=== PATIENT | female | born 2000 | race Hispanic/Latino ===

== ENCOUNTER 2024-08-18 20:41 | Emergency (ER) | payer OTHER ==
[~2024-08-18] VITALS: Ht 170.2 cm; Wt 126.1 kg
[2024-08-18 21:39] LABS: ALBUMIN 3.9 g/dL (3.5-5.0); ALBUMIN/GLOBULIN RATIO 1.2 (0.8-2.0); ANION GAP 17.3 mmol/L (8-16); BILIRUBIN,TOTAL 0.4 mg/dL (0.2-1.2); CALCIUM 9.4 mg/dL (8.4-10.2); CREATININE, SERUM 0.67 mg/dL (0.57-1.11); TOTAL PROTEIN 7.1 g/dL (6.5-8.1)
[2024-08-18 21:45] LABS: TROPONIN I 0.061 ng/mL (0-0.300)
[2024-08-18] MEDS: FAMOTIDINE 20 MG/2 ML VIAL IV STA (21:50)
[2024-08-18] MEDS: ONDANSETRON HCL INJ 2MG/ML 2ML 2 MG/ML VIAL IV STA (21:50)
[2024-08-18 21:58] LABS: POTASSIUM 3.3 mmol/L (3.5-5.1)
[2024-08-18 22:13] LABS: BASOPHILS % 0.4 % (0.0-1.0); EOSINOPHILS # (AUTO) 0.3 (0.0-0.4); EOSINOPHILS % 3.1 % (0.0-6.0); HEMATOCRIT 40.1 % (34.2-44.1); HEMOGLOBIN 12.6 g/dL (12.0-16.0); LYMPHOCYTES # (AUTO) 3.5 (1.0-3.2); LYMPHOCYTES % 42.1 % (18.0-39.1); MEAN CORPUSCULAR HEMOGLOBIN 27.8 pg (28-32); MEAN CORPUSCULAR HGB CONC 31.4 g/dL (31-35); MEAN CORPUSCULAR VOLUME 88.3 fL (81-99); MONOCYTES # (AUTO) 0.5 (0.2-0.8); MONOCYTES % 5.4 % (4.4-11.3); NEUTROPHILS # (AUTO) 4.1 (2.1-6.9); NEUTROPHILS % 48.8 % (38.7-80.0); PLATELET COUNT 214 x10e3/uL (140-360); RED BLOOD COUNT 4.54 x10e6/uL (3.6-5.1); RED CELL DISTRIBUTION WIDTH 13.7 % (11.7-14.4); WHITE BLOOD COUNT 8.33 x10e3/uL (4.8-10.8)
[2024-08-18] MEDS ORDERED: DONNATAL/LIDOCAINE/MAALOX 30 ML SUSP PO STA (22:16)
[2024-08-18] MEDS ORDERED: IOPAMIDOL 370 MG/ML 100 ML INFUS..BTL INJ ONE (22:19)
[2024-08-18] MEDS: BELLADONNA ALK/PHENOBARBITAL 5 ML UDC PO STA (22:53)
[2024-08-18] MEDS: Morphine 4mg INJECTION 4 MG/ML INJ IV STA (22:53)
[2024-08-18] MEDS: LIDOCAINE VISC 2% SOLN 15 ML UDC PO STA (22:53)
[2024-08-18] MEDS: MAGNESIUM/ALUMINUM/SIMETHICONE 30 ML UDC PO STA (22:53)
[2024-08-19] MEDS ORDERED: PROTONIX20 MG PO (00:16)
[2024-08-19] MEDS ORDERED: DICYCLOMINE HCL10 MG PO (00:16)
[2024-08-19] MEDS ORDERED: ONDANSETRON ODT4 MG PO (00:16)
[2024-08-19 00:20] VITALS: PULSE 81; RESP 17; TEMP 98.6; O2SAT 98
== END 2024-08-19 00:27 | disposition home or self-care (01) ==
LOC: ER 20:45
DX: R10.13 Epigastric pain (principal); R07.89 Other chest pain; R11.2 Nausea with vomiting, unspecified; R73.03 Prediabetes; F41.9 Anxiety disorder, unspecified; F32.A Depression, unspecified; R94.31 Abnormal electrocardiogram [ECG] [EKG]
CPT/HCPCS: 36415; 71045; 74177; 80053; 81025; 82550; 83690; 83880; 84484; 85025; 93005; 99284; J2270; J2405; Q9967

== ENCOUNTER 2024-08-19 23:28 | Inpatient (IN) | payer OTHER ==
[~2024-08-19] VITALS: Ht 170.2 cm; Wt 126.1 kg
[~2024-08-19 23:28] MED LIST: DICYCLOMINE HCL10 MG PO; ONDANSETRON ODT4 MG PO; PROTONIX20 MG PO
[2024-08-19 23:43] VITALS: TEMP 99.1
[2024-08-19] MEDS: MAGNESIUM/ALUMINUM/SIMETHICONE 30 ML UDC PO STA (23:58)
[2024-08-19] MEDS: LIDOCAINE VISC 2% SOLN 15 ML UDC PO STA (23:58)
[2024-08-19] MEDS: BELLADONNA ALK/PHENOBARBITAL 5 ML UDC PO ONE (23:59)
[2024-08-20] VITALS (9 sets, daily range): BP systolic 108–131; BP diastolic 59–89; PULSE 69–91; RESP 17–20; TEMP 97.7–98.3; O2SAT 96–100
[2024-08-20 00:08] LABS: BASOPHILS % 0.6 % (0.0-1.0); EOSINOPHILS # (AUTO) 0.3 (0.0-0.4); HEMATOCRIT 39.3 % (34.2-44.1); HEMOGLOBIN 13.1 g/dL (12.0-16.0); LYMPHOCYTES # (AUTO) 2.2 (1.0-3.2); LYMPHOCYTES % 34.9 % (18.0-39.1); MEAN CORPUSCULAR HEMOGLOBIN 27.8 pg (28-32); MEAN CORPUSCULAR HGB CONC 33.3 g/dL (31-35); MEAN CORPUSCULAR VOLUME 83.4 fL (81-99); MONOCYTES # (AUTO) 0.4 (0.2-0.8); MONOCYTES % 6.4 % (4.4-11.3); NEUTROPHILS # (AUTO) 3.4 (2.1-6.9); NEUTROPHILS % 53.9 % (38.7-80.0); PLATELET COUNT 251 x10e3/uL (140-360); RED BLOOD COUNT 4.71 x10e6/uL (3.6-5.1); RED CELL DISTRIBUTION WIDTH 13.9 % (11.7-14.4); WHITE BLOOD COUNT 6.22 x10e3/uL (4.8-10.8)
[2024-08-20 00:37] LABS: ALBUMIN 4.1 g/dL (3.5-5.0); ALBUMIN/GLOBULIN RATIO 1.4 (0.8-2.0); CALCIUM 9.6 mg/dL (8.4-10.2); CREATININE, SERUM 0.68 mg/dL (0.57-1.11); TOTAL PROTEIN 7.1 g/dL (6.5-8.1)
[2024-08-20 01:33] LABS: CLARITY,URINE CLEAR (CLEAR); COLOR,URINE AMBER (YELLOW); LEUKOCYTE ESTERASE ,URINE NEGATIVE (NEGATIVE); NITRITE,URINE NEGATIVE (NEGATIVE); PH,URINE 6.5 (5 - 7); PROTEIN,URINE DIPSTICK NEGATIVE (NEGATIVE)
[2024-08-20 01:34] LABS: BILIRUBIN,URINE MODERATE (NEGATIVE); GLUCOSE, URINE NEGATIVE (NEGATIVE); KETONES,URINE 2+ (NEGATIVE); URINE UROBILINOGEN 1 mg/dL (0.2 - 1)
[2024-08-20 01:35] LABS: BACTERIA,URINE MANY /HPF; EPITHELIAL CELLS,URINE MODERATE /LPF; RBC,URINE >50 /HPF (0-5)
[2024-08-20 01:43] LABS: PREGNANCY TEST, URINE NEGATIVE (NEGATIVE)
[2024-08-20] MEDS: SODIUM CHLORIDE 0.9% 1000ML 1,000 ML IV SCH (02:40)
[2024-08-20] MEDS: ONDANSETRON HCL INJ 2MG/ML 2ML 2 MG/ML VIAL IV PRN (02:41)
[2024-08-20] MEDS: Morphine 4mg INJECTION 4 MG/ML INJ IV PRN (02:41)
[2024-08-20] MEDS ORDERED: FAMOTIDINE 20 MG/2 ML VIAL IV ONE (14:03)
[2024-08-20] MEDS ORDERED: METOCLOPRAMIDE HCL 10 MG/2ML VIAL ONE (14:03)
[2024-08-20] MEDS ORDERED: ROCURONIUM BROMIDE 1 ML IV ONE (14:03)
[2024-08-20] MEDS ORDERED: GLYCOPYRROLATE INJ 0.2 MG/ML VIAL ONE (14:03)
[2024-08-20] MEDS ORDERED: ONDANSETRON HCL INJ 2MG/ML 2ML 2 MG/ML VIAL ONE (14:03)
[2024-08-20] MEDS ORDERED: SEVOFLURANE INHAL SOLN 250 ML PEN BTL ONE (14:04)
[2024-08-20] MEDS ORDERED: HYDROMORPHONE 2MG/ML ONE (14:09)
[2024-08-20] MEDS ORDERED: SUGAMMADEX SODIUM 200 MG/2 ML VIAL IV ONE (14:29)
[2024-08-20] MEDS: FENTANYL CITRATE/PF 100MCG/2 ML INJ ONE (15:25)
[2024-08-21] VITALS: BP 118/73; PULSE 93; RESP 18; TEMP 98.2; O2SAT 100
[2024-08-21 04:00] VITALS: BP 120/77; PULSE 84; RESP 20; TEMP 98.4; O2SAT 100
[2024-08-21 09:00] VITALS: BP 120/77; PULSE 84; RESP 20; TEMP 98.4; O2SAT 100
[2024-08-21 09:03] VITALS: BP 119/69; PULSE 80; RESP 20; TEMP 98.6; O2SAT 98
[2024-08-21 09:09] LABS: BASOPHILS % 0.4 % (0.0-1.0); EOSINOPHILS % 0.2 % (0.0-6.0); HEMATOCRIT 37.2 % (34.2-44.1); HEMOGLOBIN 12.2 g/dL (12.0-16.0); LYMPHOCYTES # (AUTO) 1.2 (1.0-3.2); LYMPHOCYTES % 12.1 % (18.0-39.1); MEAN CORPUSCULAR HEMOGLOBIN 27.9 pg (28-32); MEAN CORPUSCULAR HGB CONC 32.8 g/dL (31-35); MEAN CORPUSCULAR VOLUME 85.1 fL (81-99); MONOCYTES # (AUTO) 0.6 (0.2-0.8); MONOCYTES % 5.8 % (4.4-11.3); NEUTROPHILS # (AUTO) 8.3 (2.1-6.9); NEUTROPHILS % 80.9 % (38.7-80.0); PLATELET COUNT 233 x10e3/uL (140-360); RED BLOOD COUNT 4.37 x10e6/uL (3.6-5.1); RED CELL DISTRIBUTION WIDTH 13.9 % (11.7-14.4); WHITE BLOOD COUNT 10.27 x10e3/uL (4.8-10.8)
[2024-08-21 09:52] LABS: ALBUMIN 3.6 g/dL (3.5-5.0); ALBUMIN/GLOBULIN RATIO 1.3 (0.8-2.0); ANION GAP 14.3 mmol/L (8-16); BILIRUBIN,TOTAL 1.2 mg/dL (0.2-1.2); CALCIUM 8.8 mg/dL (8.4-10.2); CREATININE, SERUM 0.61 mg/dL (0.57-1.11); POTASSIUM 4.3 mmol/L (3.5-5.1); TOTAL PROTEIN 6.3 g/dL (6.5-8.1)
[2024-08-21] MEDS ORDERED: ULTRAM 50MG50 MG PO (11:44)
[2024-08-21 12:12] VITALS: BP 121/71; PULSE 69; RESP 20; TEMP 97.6; O2SAT 100
[2024-08-21] MEDS: TRAMADOL HCL 50 MG TAB PO PRN (13:27)
== END 2024-08-21 14:55 | disposition home or self-care (01) | DRG 418 ==
LOC: ER 23:32 → ERHOLD 08-20 01:51 → MED/SURG3 08-20 02:15
PROVIDERS: ADMIT Internal Medicine; ATTEND Internal Medicine
PROC: 0FT44ZZ Resection of Gallbladder, Percutaneous Endoscopic Approach (ICD-10-PCS; principal; 2024-08-20 13:44)
DX: K80.00 Calculus of gallbladder with acute cholecystitis without obstruction (principal); Z68.41 Body mass index [BMI] 40.0-44.9, adult; E66.9 Obesity, unspecified; K76.0 Fatty (change of) liver, not elsewhere classified; R73.03 Prediabetes; R74.8 Abnormal levels of other serum enzymes; Z79.899 Other long term (current) drug therapy
CPT/HCPCS: 36415; 74181; 76705; 80053; 81001; 81025; 83690; 85025; 88304; 93005; 99252; 99284; J2270; J2405; J2543; J2765; J7030

== ENCOUNTER 2024-08-26 20:22 | Inpatient (IN) | payer OTHER ==
[~2024-08-26] VITALS: Ht 170.2 cm; Wt 126.1 kg
[~2024-08-26 20:22] MED LIST changes: +ULTRAM 50MG50 MG PO
[2024-08-26] MEDS: Morphine 4mg INJECTION 4 MG/ML INJ IV STA (20:36)
[2024-08-26] MEDS: ONDANSETRON HCL INJ 2MG/ML 2ML 2 MG/ML VIAL IV STA (20:36)
[2024-08-26] MEDS: SODIUM CHLORIDE 0.9% 1000ML 1,000 ML IV STA (20:36)
[2024-08-26 20:50] LABS: BASOPHILS # (AUTO) 0.1 (0.0-0.1); BASOPHILS % 0.4 % (0.0-1.0); EOSINOPHILS # (AUTO) 0.3 (0.0-0.4); EOSINOPHILS % 2.4 % (0.0-6.0); HEMATOCRIT 40.5 % (34.2-44.1); HEMOGLOBIN 13.5 g/dL (12.0-16.0); LYMPHOCYTES # (AUTO) 3.1 (1.0-3.2); LYMPHOCYTES % 24.8 % (18.0-39.1); MEAN CORPUSCULAR HEMOGLOBIN 28.2 pg (28-32); MEAN CORPUSCULAR HGB CONC 33.3 g/dL (31-35); MEAN CORPUSCULAR VOLUME 84.6 fL (81-99); MONOCYTES # (AUTO) 0.6 (0.2-0.8); MONOCYTES % 4.5 % (4.4-11.3); NEUTROPHILS # (AUTO) 8.3 (2.1-6.9); NEUTROPHILS % 67.5 % (38.7-80.0); PLATELET COUNT 313 x10e3/uL (140-360); RED BLOOD COUNT 4.79 x10e6/uL (3.6-5.1); WHITE BLOOD COUNT 12.32 x10e3/uL (4.8-10.8)
[2024-08-26 21:13] LABS: ALBUMIN 3.8 g/dL (3.5-5.0); ANION GAP 16.9 mmol/L (8-16); CALCIUM 10.2 mg/dL (8.4-10.2); CREATININE, SERUM 0.65 mg/dL (0.57-1.11); POTASSIUM 3.9 mmol/L (3.5-5.1); TOTAL PROTEIN 7.7 g/dL (6.5-8.1)
[2024-08-26] MEDS ORDERED: BELLADONNA ALK/PHENOBARBITAL 5 ML UDC ONE (21:14)
[2024-08-26] MEDS ORDERED: MAGNESIUM/ALUMINUM/SIMETHICONE 30 ML UDC ONE (21:14)
[2024-08-26] MEDS ORDERED: LIDOCAINE VISC 2% SOLN 15 ML UDC ONE (21:14)
[2024-08-26] MEDS: DONNATAL/LIDOCAINE/MAALOX 30 ML SUSP PO STA (21:18)
[2024-08-26] MEDS ORDERED: PIPERACILLIN/TAZOBACTAM 3.375 GM VIAL ONE (21:36)
[2024-08-26] MEDS ORDERED: IOPAMIDOL 370 MG/ML 100 ML INFUS..BTL INJ ONE (21:39)
[2024-08-26] MEDS ORDERED: ONDANSETRON HCL INJ 2MG/ML 2ML 2 MG/ML VIAL IV PRN (22:30)
[2024-08-26] MEDS: HYDROMORPHONE 1MG/1ML INJ IV PRN (23:54)
[2024-08-27] MEDS: SODIUM CHLORIDE 0.9% 1000ML 1,000 ML IV SCH (02:13)
[2024-08-27 03:45] LABS: CLARITY,URINE CLEAR (CLEAR); COLOR,URINE YELLOW (YELLOW); GLUCOSE, URINE NEGATIVE (NEGATIVE); LEUKOCYTE ESTERASE ,URINE NEGATIVE (NEGATIVE); NITRITE,URINE NEGATIVE (NEGATIVE); PH,URINE 6 (5 - 7); PROTEIN,URINE DIPSTICK NEGATIVE (NEGATIVE)
[2024-08-27 03:46] LABS: BILIRUBIN,URINE NEGATIVE (NEGATIVE); KETONES,URINE NEGATIVE (NEGATIVE); URINE UROBILINOGEN 1 mg/dL (0.2 - 1)
[2024-08-27 03:58] LABS: BACTERIA,URINE FEW /HPF; EPITHELIAL CELLS,URINE MODERATE /LPF; WBC,URINE (MAN) 0-5 /HPF (0-5)
[2024-08-27 04:00] VITALS: TEMP 98.1
[2024-08-27 05:34] LABS: BASOPHILS % 0.2 % (0.0-1.0); EOSINOPHILS % 0.4 % (0.0-6.0); HEMATOCRIT 35.9 % (34.2-44.1); HEMOGLOBIN 11.8 g/dL (12.0-16.0); LYMPHOCYTES # (AUTO) 1.1 (1.0-3.2); LYMPHOCYTES % 11.3 % (18.0-39.1); MEAN CORPUSCULAR HGB CONC 32.9 g/dL (31-35); MEAN CORPUSCULAR VOLUME 85.1 fL (81-99); MONOCYTES # (AUTO) 0.5 (0.2-0.8); MONOCYTES % 4.7 % (4.4-11.3); NEUTROPHILS # (AUTO) 8.2 (2.1-6.9); PLATELET COUNT 241 x10e3/uL (140-360); RED BLOOD COUNT 4.22 x10e6/uL (3.6-5.1); RED CELL DISTRIBUTION WIDTH 14.1 % (11.7-14.4); WHITE BLOOD COUNT 9.87 x10e3/uL (4.8-10.8)
[2024-08-27 06:00] LABS: ALBUMIN 3.2 g/dL (3.5-5.0); ALBUMIN/GLOBULIN RATIO 0.9 (0.8-2.0); ANION GAP 13.8 mmol/L (8-16); BILIRUBIN,TOTAL 0.7 mg/dL (0.2-1.2); CALCIUM 8.9 mg/dL (8.4-10.2); CREATININE, SERUM 0.61 mg/dL (0.57-1.11); POTASSIUM 4.8 mmol/L (3.5-5.1); TOTAL PROTEIN 6.6 g/dL (6.5-8.1)
[2024-08-27 07:00] VITALS: PULSE 65; RESP 13
[2024-08-27] MEDS ORDERED: TIZANIDINE HCL4 M1 PO (10:25)
[2024-08-27 11:12] VITALS: BP 128/76; PULSE 69; RESP 18; TEMP 98.2; O2SAT 100
[2024-08-27] MEDS ORDERED: LIDOCAINE HCL 2% LOCAL INJ 5 ML SDV VIAL INJ ONE (12:33)
[2024-08-27] MEDS ORDERED: PROPOFOL IV EMULSION 10 MG/ML 20 ML VIAL ONE (12:33)
[2024-08-27] MEDS: METOCLOPRAMIDE HCL 10 MG/2ML VIAL IV SCH (12:44)
[2024-08-27] MEDS ORDERED: FENTANYL CITRATE/PF 100MCG/2 ML INJ ONE (12:46)
[2024-08-27] MEDS ORDERED: ONDANSETRON HCL INJ 2MG/ML 2ML 2 MG/ML VIAL ONE (13:35)
[2024-08-27] MEDS ORDERED: KETOROLAC TROMETHAMINE 30 MG/ML VIAL ONE (13:35)
[2024-08-27] MEDS ORDERED: MIDAZOLAM HCL 2 MG/2 ML VIAL ONE (13:44)
[2024-08-27 16:20] VITALS: BP 153/98; PULSE 88; RESP 17; TEMP 98.1; O2SAT 100
[2024-08-27 20:00] VITALS: BP 130/90; PULSE 91; RESP 19; TEMP 98.1; O2SAT 100
[2024-08-27] MEDS: CEFTRIAXONE 1 GM VIAL ONE (20:14)
[2024-08-27] MEDS: FENTANYL CITRATE/PF 100MCG/2 ML INJ ONE (20:14)
[2024-08-27] MEDS ORDERED: MAGNESIUM/ALUMINUM/SIMETHICONE 30 ML UDC ONE (21:54)
[2024-08-27] MEDS ORDERED: LIDOCAINE VISC 2% SOLN 15 ML UDC ONE (21:54)
[2024-08-27] MEDS ORDERED: BELLADONNA ALK/PHENOBARBITAL 5 ML UDC ONE (21:54)
[2024-08-27] MEDS: DONNATAL/LIDOCAINE/MAALOX 30 ML SUSP PO PRN (22:33)
[2024-08-28] VITALS: BP 140/87; PULSE 90; RESP 19; TEMP 97.5; O2SAT 99
[2024-08-28] MEDS: HYDROCODONE/APAP 5MG-325MG TAB PO PRN (02:40)
[2024-08-28 04:47] VITALS: BP 127/88; PULSE 86; RESP 18; TEMP 97.2; O2SAT 98
[2024-08-28] MEDS ORDERED: MAGNESIUM/ALUMINUM/SIMETHICONE 30 ML UDC ONE (05:25)
[2024-08-28] MEDS ORDERED: BELLADONNA ALK/PHENOBARBITAL 5 ML UDC ONE (05:25)
[2024-08-28] MEDS ORDERED: LIDOCAINE VISC 2% SOLN 15 ML UDC ONE (05:25)
[2024-08-28 07:00] VITALS: BP 138/100; PULSE 90; RESP 18; O2SAT 100
[2024-08-28 08:00] VITALS: BP 132/97; PULSE 97; RESP 18; TEMP 98.3; O2SAT 100
[2024-08-28 09:25] LABS: BASOPHILS % 0.3 % (0.0-1.0); EOSINOPHILS # (AUTO) 0.1 (0.0-0.4); EOSINOPHILS % 0.7 % (0.0-6.0); HEMATOCRIT 37.2 % (34.2-44.1); HEMOGLOBIN 12.1 g/dL (12.0-16.0); LYMPHOCYTES # (AUTO) 1.4 (1.0-3.2); MEAN CORPUSCULAR HEMOGLOBIN 27.8 pg (28-32); MEAN CORPUSCULAR HGB CONC 32.5 g/dL (31-35); MEAN CORPUSCULAR VOLUME 85.5 fL (81-99); MONOCYTES # (AUTO) 0.5 (0.2-0.8); MONOCYTES % 5.5 % (4.4-11.3); NEUTROPHILS # (AUTO) 6.9 (2.1-6.9); NEUTROPHILS % 77.2 % (38.7-80.0); PLATELET COUNT 275 x10e3/uL (140-360); RED BLOOD COUNT 4.35 x10e6/uL (3.6-5.1); RED CELL DISTRIBUTION WIDTH 14.3 % (11.7-14.4); WHITE BLOOD COUNT 8.91 x10e3/uL (4.8-10.8)
[2024-08-28 09:41] LABS: ALBUMIN 3.3 g/dL (3.5-5.0); ANION GAP 15.9 mmol/L (8-16); BILIRUBIN,TOTAL 1.2 mg/dL (0.2-1.2); CALCIUM 9.4 mg/dL (8.4-10.2); CREATININE, SERUM 0.58 mg/dL (0.57-1.11); POTASSIUM 3.9 mmol/L (3.5-5.1); TOTAL PROTEIN 6.6 g/dL (6.5-8.1)
[2024-08-28 12:00] VITALS: BP 127/94; PULSE 90; RESP 18; TEMP 98.7; O2SAT 100
[2024-08-28 16:00] VITALS: BP 128/84; PULSE 97; RESP 19; TEMP 98.3; O2SAT 98
[2024-08-28] MEDS ORDERED: DIFLUCAN100 MG PO (16:41)
[2024-08-28] MEDS ORDERED: PANTOPRAZOLE SO40 MG PO (16:41)
[2024-08-28] MEDS ORDERED: PANTOPRAZOLE SOD 40 MG TABEC PO ONE (18:30)
[2024-08-28] MEDS: PANTOPRAZOLE SOD 40 MG TABEC ONE (18:30)
[2024-08-30 06:57] LABS: HEPATITIS B SURFACE AG (P) Negative
[2024-08-30 06:58] LABS: HEPATITIS A ANTIBODY IGM (P) Negative; HEPATITIS B CORE IGM (P) Negative; HEPATITIS C ANTIBODY Non Reactive
[2024-09-02 06:08] LABS: HEPATITIS A ANTIBODY IGM (P) Negative; HEPATITIS B CORE IGM (P) Negative; HEPATITIS B SURFACE AG (P) Negative; HEPATITIS C ANTIBODY Non Reactive
== END 2024-08-28 18:40 | disposition home or self-care (01) | DRG 392 ==
LOC: ER 20:25 → ERHOLD 22:20 → MED/SURG 08-27 09:39
PROVIDERS: ADMIT Internal Medicine; ATTEND Internal Medicine
PROC: 0DB78ZX Excision of Stomach, Pylorus, Via Natural or Artificial Opening Endoscopic, Diagnostic (ICD-10-PCS; 2024-08-27)
PROC: 0DB68ZX Excision of Stomach, Via Natural or Artificial Opening Endoscopic, Diagnostic (ICD-10-PCS; principal; 2024-08-27 13:44)
DX: K29.70 Gastritis, unspecified, without bleeding (principal); Z68.41 Body mass index [BMI] 40.0-44.9, adult; E66.01 Morbid (severe) obesity due to excess calories; K20.90 Esophagitis, unspecified without bleeding; R74.8 Abnormal levels of other serum enzymes; R11.2 Nausea with vomiting, unspecified; Z90.49 Acquired absence of other specified parts of digestive tract
CPT/HCPCS: 36415; 43239; 74177; 74181; 80053; 81001; 83690; 84702; 85025; 88305; 99285; J0696; J1171; J1885; J2003; J2250; J2270; J2405; J2470; J2543; J2765; J7030; Q9967